=== PATIENT | male | born 1935 | race Caucasian/White ===

== ENCOUNTER 2024-04-05 09:10 | Inpatient (IN) | payer MEDICARE, MEDICAID ==
[2024-04-05] MEDS ORDERED: Sodium Chloride 0.9% 10 ML Syringe FLUSH PRN (09:17)
[2024-04-05 09:23] LABS: BASOPHILS ABSOLUTE AUTO 0.03 10^3/uL (0.00-0.10); BASOPHILS PERCENT AUTO 0.4 % (0.0-1.0); EOSINOPHILS ABSOLUTE AUTO 0.12 10^3/uL (0.10-0.30); EOSINOPHILS PERCENT AUTO 1.8 % (1.0-3.0); HEMATOCRIT 34.8 % (40.0-52.0); HEMOGLOBIN 11.1 g/dL (13.0-17.0); IMMATURE GRAN ABSOLUTE AUTO 0.01 10^3/uL (0.00-0.04); IMMATURE GRAN PERCENT AUTO 0.1 % (0.0-0.4); LYMPHOCYTES ABSOLUTE AUTO 0.73 10^3/uL (1.00-4.00); LYMPHOCYTES PERCENT AUTO 10.8 % (20.0-40.0); MEAN CORPUSCULAR HEMOGLOBIN 29.5 pg (27.0-31.0); MEAN CORPUSCULAR HGB CONC 31.9 g/dL (32.0-36.0); MEAN CORPUSCULAR VOLUME 92.6 fL (82.0-92.0); MEAN PLATELET VOLUME 11.2 fL (7.4-10.4); MONOCYTES PERCENT AUTO 10.4 % (2.0-8.0); NEUTROPHILS ABSOLUTE AUTO 5.14 10^3/uL (2.50-7.00); NEUTROPHILS PERCENT AUTO 76.5 % (50.0-70.0); PLATELET COUNT,PLT 180 10^3/uL (150-400); RED BLOOD CELL COUNT 3.76 10^6/uL (4.50-6.00); RED CELL DISTRIBUTION WIDTH 15.3 % (11.5-14.5); WHITE BLOOD CELL COUNT,WBC 6.73 10^3/uL (5.00-10.00)
[2024-04-05] MEDS: Diltiazem 25 MG/5 ML SDV IVPUSH ONE ×2 (09:26→12:22)
[2024-04-05] MEDS: Sodium Chloride 0.9% 1,000 ML IV ONE (09:26)
[2024-04-05 09:41] LABS: ALANINE AMINOTRANSFERASE,ALT 26 U/L (14-63); ALBUMIN 3.65 g/dL (3.40-5.00); ALKALINE PHOSPHATASE 125 U/L (46-116); ANION GAP 14.8 mmol/L (5-15); ASPARTATE AMNIOTRANSFERASE,AST 25 U/L (15-37); BILIRUBIN TOTAL 0.9 mg/dL (0.2-1.0); BLOOD UREA NITROGEN,BUN 28 mg/dL (7-18); CHLORIDE,CL 104 mmol/L (98-107); CREATININE 0.88 mg/dL (0.51-1.17); EST CRCL DRUG DOSING (CG) 47.33 mL/min; ESTIMATED GFR 82 mL/min (>=60); GLUCOSE RANDOM 111 mg/dL (70-140); POTASSIUM,K 4.8 mmol/L (3.5-5.1); PROTEIN TOTAL,TP 6.8 g/dL (6.4-8.2); SODIUM,NA 141 mmol/L (136-145)
[2024-04-05 09:42] LABS: C-REACTIVE PROTEIN < 0.50 mg/dL (0.00-0.50)
[2024-04-05 09:45] LABS: B-TYPE NATRIURETIC PEPTIDE,BNP 511 pg/mL (0-100)
[2024-04-05] MEDS: Iopamidol 755 Mg/ML 100 ML Bottle IV ONE (10:50)
[2024-04-05] MEDS: Sodium Chloride 0.9% 100 ML IV SCH (10:50)
[2024-04-05] MEDS: Diltiazem IR 60 MG Tab PO ONE (12:09)
[2024-04-05] MEDS ORDERED: Ondansetron 4 MG/2 ML SDV IV PRN (16:26)
[2024-04-05] MEDS ORDERED: Acetaminophen 325 MG Tab PO PRN (16:26)
[2024-04-05] MEDS ORDERED: Sennosides/Docusate Sodium 50-8.6 MG Tab PO PRN (16:26)
[2024-04-05] MEDS ORDERED: Polyethylene Glycol 3350 Powder 17 GM Packet PO PRN (16:26)
[2024-04-05] MEDS: Metoprolol Tartrate 25 MG Tab PO SCH (17:00)
[2024-04-05] MEDS: Furosemide 40 MG/4 ML VIAL IVPUSH SCH (17:55)
[2024-04-06 06:16] LABS: APPEARANCE,URINE CLEAR (CLEAR); BILIRUBIN,URINE NEGATIVE (NEGATIVE); COLOR,URINE YELLOW (YELLOW); GLUCOSE,URINE NEGATIVE (NEGATIVE); KETONES,URINE NEGATIVE (NEGATIVE); LEUKOCYTE ESTERASE,URINE NEGATIVE (NEGATIVE); NITRITE,URINE NEGATIVE (NEGATIVE); OCCULT BLOOD,URINE NEGATIVE (NEGATIVE); PH,URINE 5.5 (5.0-9.0); PROTEIN,URINE NEGATIVE (NEGATIVE); UROBILINOGEN,URINE 0.2 E.U./dL (0.2-1.0)
[2024-04-06 07:31] LABS: BASOPHILS ABSOLUTE AUTO 0.03 10^3/uL (0.00-0.10); BASOPHILS PERCENT AUTO 0.5 % (0.0-1.0); EOSINOPHILS ABSOLUTE AUTO 0.05 10^3/uL (0.10-0.30); EOSINOPHILS PERCENT AUTO 0.9 % (1.0-3.0); HEMATOCRIT 32.1 % (40.0-52.0); HEMOGLOBIN 10.6 g/dL (13.0-17.0); LYMPHOCYTES ABSOLUTE AUTO 0.75 10^3/uL (1.00-4.00); LYMPHOCYTES PERCENT AUTO 13.7 % (20.0-40.0); MEAN CORPUSCULAR HEMOGLOBIN 29.9 pg (27.0-31.0); MEAN CORPUSCULAR VOLUME 90.7 fL (82.0-92.0); MEAN PLATELET VOLUME 11.2 fL (7.4-10.4); MONOCYTES PERCENT AUTO 9.2 % (2.0-8.0); NEUTROPHILS ABSOLUTE AUTO 4.13 10^3/uL (2.50-7.00); NEUTROPHILS PERCENT AUTO 75.7 % (50.0-70.0); PLATELET COUNT,PLT 154 10^3/uL (150-400); RED BLOOD CELL COUNT 3.54 10^6/uL (4.50-6.00); RED CELL DISTRIBUTION WIDTH 15.3 % (11.5-14.5); WHITE BLOOD CELL COUNT,WBC 5.46 10^3/uL (5.00-10.00)
[2024-04-06 07:49] LABS: ALBUMIN 3.26 g/dL (3.40-5.00); ANION GAP 12.6 mmol/L (5-15); BILIRUBIN TOTAL 1.2 mg/dL (0.2-1.0); CALCIUM 8.8 mg/dL (8.7-10.3); CARBON DIOXIDE,CO2 26.7 mmol/L (21.0-32.0); CREATININE 0.94 mg/dL (0.51-1.17); EST CRCL DRUG DOSING (CG) 43.25 mL/min; MAGNESIUM 1.9 mg/dL (1.8-2.4); POTASSIUM,K 4.3 mmol/L (3.5-5.1); PROTEIN TOTAL,TP 6.1 g/dL (6.4-8.2)
[2024-04-06] MEDS: Albuterol/Ipratropium 3.0-0.5 MG/3 ML Neb Soln NEB PRN (07:52)
[2024-04-06] MEDS: Apixaban 5 MG Tab PO SCH (12:07)
[2024-04-06] MEDS: Digoxin 500 MCG/2 ML Amp IVPUSH ONE (13:10)
[2024-04-06] MEDS: Metoprolol Tartrate 25 MG Tab PO SCH (17:05)
[2024-04-07 07:38] LABS: BASOPHILS ABSOLUTE AUTO 0.03 10^3/uL (0.00-0.10); BASOPHILS PERCENT AUTO 0.6 % (0.0-1.0); EOSINOPHILS ABSOLUTE AUTO 0.26 10^3/uL (0.10-0.30); EOSINOPHILS PERCENT AUTO 5.1 % (1.0-3.0); HEMATOCRIT 32.9 % (40.0-52.0); HEMOGLOBIN 10.9 g/dL (13.0-17.0); LYMPHOCYTES ABSOLUTE AUTO 0.92 10^3/uL (1.00-4.00); LYMPHOCYTES PERCENT AUTO 18.1 % (20.0-40.0); MEAN CORPUSCULAR HEMOGLOBIN 29.6 pg (27.0-31.0); MEAN CORPUSCULAR HGB CONC 33.1 g/dL (32.0-36.0); MEAN CORPUSCULAR VOLUME 89.4 fL (82.0-92.0); MEAN PLATELET VOLUME 11.1 fL (7.4-10.4); MONOCYTES ABSOLUTE AUTO 0.56 10^3/uL (0.10-0.80); NEUTROPHILS PERCENT AUTO 65.2 % (50.0-70.0); PLATELET COUNT,PLT 156 10^3/uL (150-400); RED BLOOD CELL COUNT 3.68 10^6/uL (4.50-6.00); RED CELL DISTRIBUTION WIDTH 14.6 % (11.5-14.5); WHITE BLOOD CELL COUNT,WBC 5.07 10^3/uL (5.00-10.00)
[2024-04-07 07:57] LABS: ALBUMIN 2.88 g/dL (3.40-5.00); ANION GAP 12.2 mmol/L (5-15); BILIRUBIN TOTAL 0.9 mg/dL (0.2-1.0); CALCIUM 8.8 mg/dL (8.7-10.3); CARBON DIOXIDE,CO2 29.3 mmol/L (21.0-32.0); CREATININE 0.89 mg/dL (0.51-1.17); EST CRCL DRUG DOSING (CG) 40.99 mL/min; MAGNESIUM 1.7 mg/dL (1.8-2.4); POTASSIUM,K 3.5 mmol/L (3.5-5.1); PROTEIN TOTAL,TP 5.7 g/dL (6.4-8.2)
[2024-04-07] MEDS: Furosemide 40 MG Tab PO SCH (15:11)
[2024-04-07] MEDS: Potassium Chloride 20 MEQ Tab.ER PO SCH (15:11)
[2024-04-08 07:57] LABS: BASOPHILS ABSOLUTE AUTO 0.04 10^3/uL (0.00-0.10); BASOPHILS PERCENT AUTO 0.8 % (0.0-1.0); EOSINOPHILS ABSOLUTE AUTO 0.21 10^3/uL (0.10-0.30); EOSINOPHILS PERCENT AUTO 4.2 % (1.0-3.0); HEMATOCRIT 34.8 % (40.0-52.0); HEMOGLOBIN 11.6 g/dL (13.0-17.0); IMMATURE GRAN ABSOLUTE AUTO 0.01 10^3/uL (0.00-0.04); IMMATURE GRAN PERCENT AUTO 0.2 % (0.0-0.4); LYMPHOCYTES ABSOLUTE AUTO 0.94 10^3/uL (1.00-4.00); LYMPHOCYTES PERCENT AUTO 18.9 % (20.0-40.0); MEAN CORPUSCULAR HEMOGLOBIN 29.9 pg (27.0-31.0); MEAN CORPUSCULAR HGB CONC 33.3 g/dL (32.0-36.0); MEAN CORPUSCULAR VOLUME 89.7 fL (82.0-92.0); MEAN PLATELET VOLUME 11.1 fL (7.4-10.4); MONOCYTES PERCENT AUTO 12.1 % (2.0-8.0); NEUTROPHILS ABSOLUTE AUTO 3.17 10^3/uL (2.50-7.00); NEUTROPHILS PERCENT AUTO 63.8 % (50.0-70.0); PLATELET COUNT,PLT 176 10^3/uL (150-400); RED BLOOD CELL COUNT 3.88 10^6/uL (4.50-6.00); RED CELL DISTRIBUTION WIDTH 14.4 % (11.5-14.5); WHITE BLOOD CELL COUNT,WBC 4.97 10^3/uL (5.00-10.00)
[2024-04-08 08:13] LABS: ALBUMIN 2.85 g/dL (3.40-5.00); ANION GAP 9.3 mmol/L (5-15); CALCIUM 8.6 mg/dL (8.7-10.3); CARBON DIOXIDE,CO2 31.7 mmol/L (21.0-32.0); CREATININE 0.91 mg/dL (0.51-1.17); EST CRCL DRUG DOSING (CG) 37.44 mL/min; MAGNESIUM 1.8 mg/dL (1.8-2.4); PROTEIN TOTAL,TP 5.8 g/dL (6.4-8.2)
[2024-04-08] MEDS: Furosemide 40 MG Tab PO SCH (09:22)
[2024-04-08] MEDS: Metoprolol Tartrate 25 MG Tab PO ONE (10:49)
[2024-04-08] MEDS: Metoprolol Tartrate 50 MG Tab PO SCH (20:32)
[2024-04-09 07:51] LABS: ALBUMIN 3.06 g/dL (3.40-5.00); ANION GAP 10.7 mmol/L (5-15); CALCIUM 8.7 mg/dL (8.7-10.3); CARBON DIOXIDE,CO2 29.7 mmol/L (21.0-32.0); CREATININE 0.89 mg/dL (0.51-1.17); EST CRCL DRUG DOSING (CG) 38.36 mL/min; PHOSPHORUS 3.4 mg/dL (2.6-4.7); POTASSIUM,K 4.4 mmol/L (3.5-5.1)
[2024-04-09] MEDS: Furosemide 40 MG Tab PO SCH (09:16)
[2024-04-10 10:49] VITALS: BP 104/64; PULSE 101
== END 2024-04-10 12:00 | disposition home or self-care (01) | DRG 308 ==
LOC: KA.ED 09:10 → KA.MS 14:01
PROVIDERS: ADMIT Internal Medicine; ATTEND Internal Medicine
DX: J90 Pleural effusion, not elsewhere classified (principal); I48.91 Unspecified atrial fibrillation; I50.23 Acute on chronic systolic (congestive) heart failure; R79.89 Other specified abnormal findings of blood chemistry; R79.1 Abnormal coagulation profile; D64.9 Anemia, unspecified; Z66 Do not resuscitate
CPT/HCPCS: 36415; 71045; 71275; 80053; 80069; 81003; 83735; 83880; 84484; 85025; 85379; 86140; 87040; 93005; 93010; 96361; 96374; 96376; 99223-GT; 99232-GT; 99233-GT; 99239-GT; 99284; 99285-25; A9270-GY; J1160; J1940; J3490; J7030; J7620-GY; Q3014; Q9967

== ENCOUNTER 2024-04-10 10:56 | Inpatient (IN) | payer MEDICARE, MEDICAID ==
[2024-04-10] MEDS ORDERED: Albuterol/Ipratropium 3.0-0.5 MG/3 ML Neb Soln NEB PRN (12:19)
[2024-04-10] MEDS ORDERED: Sennosides/Docusate Sodium 50-8.6 MG Tab PO PRN (12:19)
[2024-04-10] MEDS ORDERED: Polyethylene Glycol 3350 Powder 17 GM Packet PO PRN (12:19)
[2024-04-10] MEDS ORDERED: Ondansetron 4 MG/2 ML SDV IV PRN (12:19)
[2024-04-10 15:13] LABS: BASOPHILS ABSOLUTE AUTO 0.06 10^3/uL (0.00-0.10); BASOPHILS PERCENT AUTO 0.8 % (0.0-1.0); EOSINOPHILS ABSOLUTE AUTO 0.26 10^3/uL (0.10-0.30); EOSINOPHILS PERCENT AUTO 3.4 % (1.0-3.0); HEMATOCRIT 39.9 % (40.0-52.0); HEMOGLOBIN 12.9 g/dL (13.0-17.0); IMMATURE GRAN ABSOLUTE AUTO 0.01 10^3/uL (0.00-0.04); IMMATURE GRAN PERCENT AUTO 0.1 % (0.0-0.4); LYMPHOCYTES ABSOLUTE AUTO 1.03 10^3/uL (1.00-4.00); LYMPHOCYTES PERCENT AUTO 13.5 % (20.0-40.0); MEAN CORPUSCULAR HEMOGLOBIN 29.7 pg (27.0-31.0); MEAN CORPUSCULAR HGB CONC 32.3 g/dL (32.0-36.0); MEAN CORPUSCULAR VOLUME 91.7 fL (82.0-92.0); MEAN PLATELET VOLUME 10.9 fL (7.4-10.4); MONOCYTES ABSOLUTE AUTO 0.74 10^3/uL (0.10-0.80); MONOCYTES PERCENT AUTO 9.7 % (2.0-8.0); NEUTROPHILS ABSOLUTE AUTO 5.51 10^3/uL (2.50-7.00); NEUTROPHILS PERCENT AUTO 72.5 % (50.0-70.0); PLATELET COUNT,PLT 176 10^3/uL (150-400); RED BLOOD CELL COUNT 4.35 10^6/uL (4.50-6.00); RED CELL DISTRIBUTION WIDTH 14.7 % (11.5-14.5); WHITE BLOOD CELL COUNT,WBC 7.61 10^3/uL (5.00-10.00)
[2024-04-10 15:28] LABS: ALBUMIN 3.31 g/dL (3.40-5.00); ANION GAP 12.4 mmol/L (5-15); BILIRUBIN TOTAL 0.6 mg/dL (0.2-1.0); CALCIUM 9.1 mg/dL (8.7-10.3); CARBON DIOXIDE,CO2 30.2 mmol/L (21.0-32.0); CREATININE 0.91 mg/dL (0.51-1.17); EST CRCL DRUG DOSING (CG) 36.97 mL/min; POTASSIUM,K 4.6 mmol/L (3.5-5.1); PROTEIN TOTAL,TP 6.6 g/dL (6.4-8.2)
[2024-04-10 15:38] LABS: PROTHROMBIN TIME 10.8 SEC (9.3-12.2)
[2024-04-10] MEDS: atorvaSTATin 40 MG Tab PO SCH (20:50)
[2024-04-10] MEDS: Apixaban 5 MG Tab PO SCH (20:50)
[2024-04-10] MEDS ORDERED: Apixaban 5 MG Tab PO SCH (21:00)
[2024-04-10] MEDS: Metoprolol Tartrate 50 MG Tab PO SCH (21:19)
[2024-04-11] MEDS: Diltiazem 25 MG/5 ML SDV IVPUSH ONE (05:20)
[2024-04-11] MEDS: Sodium Chloride 0.9% 10 ML Syringe FLUSH PRN (05:23)
[2024-04-11] MEDS: Potassium Chloride 20 MEQ Tab.ER PO SCH (08:46)
[2024-04-11] MEDS: Furosemide 40 MG Tab PO SCH (09:04)
[2024-04-11] MEDS: Metoprolol Tartrate 50 MG Tab PO SCH (09:18)
[2024-04-11 19:20] LABS: APPEARANCE,URINE CLEAR (CLEAR); BILIRUBIN,URINE NEGATIVE (NEGATIVE); COLOR,URINE YELLOW (YELLOW); GLUCOSE,URINE NEGATIVE (NEGATIVE); KETONES,URINE TRACE mg/dL (NEGATIVE); LEUKOCYTE ESTERASE,URINE NEGATIVE (NEGATIVE); NITRITE,URINE NEGATIVE (NEGATIVE); OCCULT BLOOD,URINE NEGATIVE (NEGATIVE); PH,URINE 8.5 (5.0-9.0); PROTEIN,URINE 30 mg/dL (NEGATIVE); UROBILINOGEN,URINE 0.2 E.U./dL (0.2-1.0)
[2024-04-11 19:24] LABS: BACTERIA,URINE RARE /HPF (NONE TO FEW); EPITHELIAL CELLS,URINE RARE /LPF; MUCUS,URINE RARE /LPF (NEGATIVE); WBC,URINE 0-5 /HPF (0-5)
[2024-04-11] MEDS: Acetaminophen 325 MG Tab PO PRN (20:17)
[2024-04-12] MEDS: Furosemide 20 MG Tab PO SCH (08:26)
[2024-04-12] MEDS ORDERED: Diltiazem 120 MG Cap.CD PO SCH (12:30)
[2024-04-12] MEDS ORDERED: Diltiazem IR 60 MG Tab PO SCH (12:30)
[2024-04-12 14:40] VITALS: BP 109/55; PULSE 136
== END 2024-04-12 15:03 | DRG 948 ==
LOC: KA.MS 12:01 → UNDOADMIN 12:01 → KA.MS 12:19 → UNDOADMIN 12:19 → KA.MS 14:50
PROVIDERS: ADMIT Internal Medicine; ATTEND Internal Medicine
DX: R53.81 Other malaise (principal); G45.9 Transient cerebral ischemic attack, unspecified; Z66 Do not resuscitate; I50.9 Heart failure, unspecified; I48.91 Unspecified atrial fibrillation
CPT/HCPCS: 36415; 70450; 71045; 80053; 81001; 83735; 85025; 85610; 93005; 96125-GN; 97165-GO; A9270-GY; J3490; Q3014